=== PATIENT | male | born 1985 | race Caucasian/White ===

== ENCOUNTER 2018-01-03 17:51 | Emergency (ER) | payer OTHER ==
[~2018-01-03] VITALS: Ht 165.1 cm; Wt 70.3 kg
[2018-01-03 18:01] VITALS: Ht 165.1 cm; Wt 70.3 kg
[2018-01-03 18:42] LABS: CALCIUM 8.7 mg/dL (8.5-10.1); CARBON DIOXIDE 25.2 mmol/L (21-32); CHLORIDE SERUM 104 mmol/L (98-107); CREATININE SERUM 1.2 mg/dL (0.7-1.3); GFR1 > 60 mL/min; GLUCOSE SERUM 91 mg/dL (74-106); POTASSIUM SERUM 3.5 mmol/L (3.5-5.1); SODIUM SERUM 142 mmol/L (136-145)
[2018-01-03 18:46] LABS: ALBUMIN 4.4 g/dL (3.4-5.0); ALKALINE PHOSPHATASE 84 U/L (46-116); ALT/SGPT 68 U/L (16-63); AST/SGOT 32 U/L (15-37); BILIRUBIN TOTAL 1.85 mg/dL (0.20-1.00); LIPASE 193 IU/L (73-393); TOTAL PROTEIN, SERUM 8.1 g/dL (6.4-8.2)
[2018-01-03 18:50] LABS: BASOPHIL % 0.2 % (0-2); PLATELET COUNT 241 x10^3mcL (130-400); RED CELL DISTRIBUTION WIDTH 12.2 % (11.5-14.5)
[2018-01-03 19:02] LABS: microscopic required? YES; urine erythrocyte 1+ (NEGATIVE)
[2018-01-03 20:46] VITALS: BP 137/91
== END 2018-01-03 20:46 | disposition home or self-care (01) ==
LOC: ED 17:51
PROVIDERS: Emergency Medicine
DX: R10.13 Epigastric pain (principal); R19.7 Diarrhea, unspecified
CPT/HCPCS: J7030; Q0092